=== PATIENT | female | born 1970 | race Caucasian/White ===

== ENCOUNTER → 2024-01-04 08:09 | Outpatient (REF) | payer OTHER, SELFPAY | LOC: WDC 08:09 | PROVIDERS: ATTENDING PHYSICIAN Advanced Practice Midwife; FAMILY PHYSICIAN Nurse Practitioner Family | DX: Z12.31 Encounter for screening mammogram for malignant neoplasm of breast (principal) | CPT/HCPCS: 77063; 77067 ==

== ENCOUNTER → 2025-02-13 18:44 | Outpatient (REF) | payer OTHER, SELFPAY | LOC: WDC 18:44 | PROVIDERS: ATTENDING PHYSICIAN Advanced Practice Midwife; FAMILY PHYSICIAN Nurse Practitioner Family | DX: Z12.31 Encounter for screening mammogram for malignant neoplasm of breast (principal) | CPT/HCPCS: 77063; 77067 ==